=== PATIENT | male | born 1935 | race Caucasian/White ===

== ENCOUNTER 2019-02-15 16:35 | Inpatient (IN) | payer MEDICARE, OTHER ==
[~2019-02-15] VITALS: Ht 175 cm; Wt 90.1 kg
[~2019-02-15 16:35] MED LIST: ASPI81CH PO; CLOP75 PO; Flonase 0.05% N16 GM; Flovent 110 MCG12 GM INH; HYDCHL25 PO
--- NOTE | 2019-02-19 06:48 | NUR ---
Ambulatory in Day Surgery History, Chart, Medications and Allergies reviewed before start of procedure.Patient confirms NPO status and agrees with scheduled surgery. Lungs clear T/O to Auscultation. Patient reports completing Chlorhexadine shower X2 prior to admission to hospital.Surgical site prepped with 2% Chlorhexidine cloth wipe.
--- NOTE | 2019-02-19 10:41 | NUR ---
PT ARRIVED TO THE ROOM ALERT AND ORNIENTED. PT DENIES PAIN, PT HAD SPINAL ANESTHESIA HE STILL REPORTS LACK OF SENSATION TO BLE AND NO MOVEMENT. CAP REFILL WNL; UNABLE TO FEEL PULSE ON LLE, DOPPLER USED TO LOCATE. PT REPORTS THIS IS NORMAL AND HE RECENTLY HAD A BLOOD FLOW STUDY DONE, PT REPORTS THAT DR. BELL WAS UNABLE TO FEEL A PULSE IN HIS LLE AT A PRE-OP APPOINTMENT. WILL CONTINUE TO MONITOR.
--- NOTE | 2019-02-19 16:17 | NUR ---
BLADDER SCANNED PT. 35OML SEEN. STRAIGHT CATH PER ORDER, 400 OUT. WILL CONTINUE TO MONITOR PATIENT FOR STATED URGE TO VOID AND BLADDER SCAN AGAIN IN 6 HOURS PER ORDERS.
--- NOTE | 2019-02-19 16:39 | NUR ---
SHIFT SUMMARY POD 0 LEFT TOTAL HIP PATIENT IS ALERT AND ORIENTED WITH NO COMPLAINTS OF PAIN. PATIENT DEEP BREATHING AND USING INCENTIVE SPIROMETER. UP AND AMBULATING WITH THERAPY. TOLERATING WELL. NO URGE TO VOID, STRAIGHT CATH NEEDED AT 1600 WITH 400ML OUT. PT UP AND IN CHAIR. IN ROOM DURING DAY. WILL CONTINUE TO MONITOR AND ENCOURAGE AMBULATION TOLERATED.
[2019-02-20 04:04] LABS: BASOPHILS ABSOLUTE AUTO 0.07 K/mm3 (0.00-0.23); BASOPHILS PERCENT AUTO 1 % (0-2); EOSINOPHILS PERCENT AUTO 0 % (0-6); Hematocrit 38.4 % (37.0-53.0); Hemoglobin 12.4 g/dL (13.5-17.5); IMMATURE GRAN ABSOLUTE AUTO 0.04 K/mm3 (0.00-0.10); IMMATURE GRAN PERCENT AUTO 0 % (0-1); LYMPHOCYTES ABSOLUTE AUTO 1.14 K/mm3 (0.84-5.20); LYMPHOCYTES PERCENT AUTO 12 % (21-46); MONOCYTES ABSOLUTE AUTO 1.27 K/mm3 (0.16-1.47); MONOCYTES PERCENT AUTO 13 % (4-13); Mean Corpuscular HGB 32.2 pg (26.0-34.0); Mean Corpuscular HGB Conc 32.3 g/dL (31.5-36.5); Mean Corpuscular Volume 100 fL (80-100); Mean Platelet Volume 10.2 fL (9.1-12.4); NEUTROPHILS ABSOLUTE AUTO 6.94 K/mm3 (1.96-9.15); NEUTROPHILS PERCENT AUTO 73 % (41-73); Platelet Count 263 K/mm3 (150-400); RDW Coefficient Variation 13.4 % (11.7-14.2); RDW Standard Deviation 49.1 fL (35.1-46.3); Red Blood Cell Count 3.85 M/mm3 (4.30-5.90); White Blood Cell Count 9.46 K/mm3 (4.00-11.30)
[2019-02-20 04:22] LABS: Anion Gap 3 mmol/L (6-16); Blood Urea Nitrogen 16 mg/dL (8-24); Bun/Creatinine Ratio 17.6 (12.0-20.0); CO2, Blood 30 mmol/L (21-32); Calcium, Blood 8.4 mg/dL (8.5-10.1); Chloride, Blood 107 mmol/L (98-108); Creatinine, Blood 0.91 mg/dL (0.60-1.20); Glomerular Filtration Rate >60 (60-); Glucose, Blood 107 mg/dL (70-99); Potassium, Blood 4.4 mmol/L (3.5-5.5); Sodium, Blood 140 mmol/L (136-145)
--- NOTE | 2019-02-20 04:49 | NUR ---
SHIFT SUMMARY: PT POD #1 FOR LEFT TOTAL KNEE. AQUACEL DRESSING CDI WITH POLAR PACK IN PLACE. BLE PULSES THREADY, HOWEVER THIS IS NORMAL FOR PT. 1 ASSIST TO BATHROOM W/FWW. BOBBY ACTIVITY WELL AND VOIDING WELL. DENIES N/V. DRINKING ADEQUATE AMT OF FLUIDS. SALINE LOCKED. PAIN MANAGED WITH SCHED TORADOL AND TYLENOL.
[2019-02-20] MEDS ORDERED: Percocet 5-3251 EACH PO ×2 (10:54→10:55)
[2019-02-20] MEDS ORDERED: CELE100 PO (10:56)
--- NOTE | 2019-02-20 11:49 | NUR ---
SHIFT SUMMARY PT A&OX4, VSS, LEFT FLOOR VIA WC WITH RN, TO GO HOME WITH , WITH ALL PERSONAL POSSESSIONS INCLUDING DISCHARGE PACKET AND 2 SCRIPTS AND 2 AQUACEL. DISCHARGE INSTRUCTIONS PROVIDED. PT REP UNDERSTANDING THOSE INSTRUCTIONS INCLUDING CHANGE DRESSINGS ON SATURDAYS UNTIL FU WITH SG IN 2 WKS, OK TO SHOWER, NO TUB/JACUZZI, AMB W/FWW AT ALL TIMES, REST/ICE/ELEVATE, PT OUTPT. IV DC'D.
== END 2019-02-20 11:24 | disposition home or self-care (01) | DRG 470 ==
LOC: SURS 02-19 06:00 → PRE IP 02-19 07:30 → SURS 02-19 10:26
PROVIDERS: ADMIT Orthopaedic Surgery
PROC: 0SRB04A Replacement of Left Hip Joint with Ceramic on Polyethylene Synthetic Substitute, Uncemented, Open Approach (ICD-10-PCS; principal; 2019-02-19 07:30)
DX: M16.12 Unilateral primary osteoarthritis, left hip (principal); I10 Essential (primary) hypertension; J45.909 Unspecified asthma, uncomplicated
CPT/HCPCS: 36415; 72170; 80048; 85025; 86850; 86900; 86901; 88300; 97110; 97116; 97162; C1776; J0171; J0690; J0735; J1885; J2250; J2704; J2795; J3010; J7120

== ENCOUNTER 2020-07-30 08:51 | Day surgery (SDC) | payer MEDICARE, OTHER ==
[~2020-07-30] VITALS: Ht 175.3 cm; Wt 91.0 kg
[~2020-07-30 08:51] MED LIST changes: +CELE100 PO; +Percocet 5-3251 EACH PO
[2020-07-30] MEDS ORDERED: ASPIR 8181 M1 (09:00)
== END 2020-07-30 11:05 | disposition home or self-care (01) ==
LOC: ORSCSDS 08:51
PROVIDERS: Internal Medicine Gastroenterology
PROC: 0DBL8ZX Excision of Transverse Colon, Via Natural or Artificial Opening Endoscopic, Diagnostic (ICD-10-PCS; principal; 2020-07-30 10:15)
PROC: 0DBM8ZX Excision of Descending Colon, Via Natural or Artificial Opening Endoscopic, Diagnostic (ICD-10-PCS; principal; 2020-07-30 10:15)
PROC: 0DBN8ZX Excision of Sigmoid Colon, Via Natural or Artificial Opening Endoscopic, Diagnostic (ICD-10-PCS; principal; 2020-07-30 10:15)
DX: Z12.11 Encounter for screening for malignant neoplasm of colon (principal); D12.3 Benign neoplasm of transverse colon; D12.5 Benign neoplasm of sigmoid colon; K64.8 Other hemorrhoids; Z86.010 Personal history of colon polyps; Z79.01 Long term (current) use of anticoagulants; Z79.82 Long term (current) use of aspirin; Z79.899 Other long term (current) drug therapy; Z87.891 Personal history of nicotine dependence
CPT/HCPCS: 88305; J2704; J7120

== ENCOUNTER → 2023-03-07 | Outpatient (CLI) | payer MEDICARE, OTHER ==
[~2023-03-07] MED LIST changes: +ASPIR 8181 M1
[2023-03-07 15:18] LABS: BASOPHILS ABSOLUTE AUTO 0.09 K/mm3 (0.00-0.23); BASOPHILS PERCENT AUTO 1 % (0-2); EOSINOPHILS ABSOLUTE AUTO 0.33 K/mm3 (0.00-0.68); EOSINOPHILS PERCENT AUTO 4 % (0-6); Hematocrit 45.7 % (37.0-53.0); Hemoglobin 15.5 g/dL (13.5-17.5); IMMATURE GRAN ABSOLUTE AUTO 0.02 K/mm3 (0.00-0.10); IMMATURE GRAN PERCENT AUTO 0 % (0-1); LYMPHOCYTES ABSOLUTE AUTO 3.05 K/mm3 (0.84-5.20); LYMPHOCYTES PERCENT AUTO 34 % (21-46); MONOCYTES PERCENT AUTO 13 % (4-13); Mean Corpuscular HGB 35.2 pg (26.0-34.0); Mean Corpuscular HGB Conc 33.9 g/dL (31.5-36.5); Mean Corpuscular Volume 104 fL (80-100); Mean Platelet Volume 12.5 fL (9.1-12.4); NEUTROPHILS ABSOLUTE AUTO 4.34 K/mm3 (1.96-9.15); NEUTROPHILS PERCENT AUTO 48 % (41-73); Platelet Count 222 K/mm3 (150-400); RDW Coefficient Variation 14.2 % (11.7-14.2); RDW Standard Deviation 54.5 fL (35.1-46.3); White Blood Cell Count 9.03 K/mm3 (4.00-11.30)
[2023-03-07 16:10] LABS: Alanine Aminotransfer (ALT/SGP 27 U/L (12-78); Albumin, Blood 3.9 g/dL (3.4-5.0); Albumin/Globulin Ratio 1.3 (0.8-1.8); Alk Phos 91 U/L (50-136); Anion Gap 2 mmol/L (6-16); Aspartate Aminotrans (AST/SGOT 16 U/L (12-37); Bilirubin, Total 0.7 mg/dL (0.1-1.0); Blood Urea Nitrogen 17 mg/dL (8-24); Bun/Creatinine Ratio 16.5 (12.0-20.0); CO2, Blood 31 mmol/L (21-32); Calcium, Blood 9.9 mg/dL (8.5-10.1); Chloride, Blood 102 mmol/L (98-108); Creatinine, Blood 1.03 mg/dL (0.60-1.20); Globulin, Blood 3.1 g/dL (2.2-4.0); Glomerular Filtration Rate 71 (60-); Glucose, Blood 131 mg/dL (70-99); PSA, %Free 8.4 %; PSA, Free 0.793 ng/mL; Potassium, Blood 4.5 mmol/L (3.5-5.5); Sodium, Blood 135 mmol/L (136-145)
[2023-03-08 20:09] LABS: HEMOGLOBIN A1C 7.1 % (4.8-5.6)
== END | disposition home or self-care (01) ==
LOC: LAB SHORT 09:14 → LAB 09:14
PROVIDERS: Physician Assistant
DX: E11.9 Type 2 diabetes mellitus without complications (principal); I10 Essential (primary) hypertension; R97.20 Elevated prostate specific antigen [PSA]
CPT/HCPCS: 36415; 80053; 83036; 84153; 84154; 85025

== ENCOUNTER → 2024-03-08 | Outpatient (CLI) | payer MEDICARE, OTHER ==
[~2024-03-08] MED LIST changes: -ASPIR 8181 M1; +ASPIR 8181 M1 PO; +ELIQUIS5 M2 PO; +MOBIC15 MG PO
[2024-03-08 14:00] LABS: BASOPHILS PERCENT AUTO 1 % (0-2); EOSINOPHILS PERCENT AUTO 3 % (0-6); Hematocrit 41.7 % (37.0-53.0); Hemoglobin 14.2 g/dL (13.5-17.5); IMMATURE GRAN ABSOLUTE AUTO 0.06 K/mm3 (0.00-0.10); IMMATURE GRAN PERCENT AUTO 1 % (0-1); LYMPHOCYTES ABSOLUTE AUTO 3.29 K/mm3 (0.84-5.20); LYMPHOCYTES PERCENT AUTO 29 % (21-46); MONOCYTES ABSOLUTE AUTO 1.56 K/mm3 (0.16-1.47); MONOCYTES PERCENT AUTO 14 % (4-13); Mean Corpuscular HGB 35.2 pg (26.0-34.0); Mean Corpuscular HGB Conc 34.1 g/dL (31.5-36.5); Mean Corpuscular Volume 104 fL (80-100); Mean Platelet Volume 9.5 fL (9.1-12.4); NEUTROPHILS ABSOLUTE AUTO 6.05 K/mm3 (1.96-9.15); NEUTROPHILS PERCENT AUTO 53 % (41-73); Platelet Count 376 K/mm3 (150-400); RDW Coefficient Variation 14.6 % (11.7-14.2); RDW Standard Deviation 56.7 fL (35.1-46.3); Red Blood Cell Count 4.03 M/mm3 (4.30-5.90); White Blood Cell Count 11.36 K/mm3 (4.00-11.30)
[2024-03-08 14:09] LABS: Albumin, Blood 3.5 g/dL (3.4-5.0); Bilirubin, Total 0.7 mg/dL (0.1-1.0); Bun/Creatinine Ratio 12.8 (12.0-20.0); Calcium, Blood 10.4 mg/dL (8.5-10.1); Creatinine, Blood 1.09 mg/dL (0.60-1.20); Globulin, Blood 3.5 g/dL (2.2-4.0); Potassium, Blood 4.1 mmol/L (3.5-5.5)
== END | disposition home or self-care (01) ==
LOC: LAB SHORT 13:55 → LAB 13:55
PROVIDERS: Family Medicine
DX: R41.0 Disorientation, unspecified (principal)
CPT/HCPCS: 80053; 85025

== ENCOUNTER → 2024-03-08 | Outpatient (CLI) | payer MEDICARE, OTHER | END | disposition home or self-care (01) | LOC: LAB 16:03 → LAB SHORT 16:03 | DX: N39.0 Urinary tract infection, site not specified (principal) | CPT/HCPCS: 87086 ==

== ENCOUNTER → 2024-03-15 | Outpatient (CLI) | payer MEDICARE, OTHER ==
[2024-03-15 12:28] LABS: BASOPHILS ABSOLUTE AUTO 0.07 K/mm3 (0.00-0.23); BASOPHILS PERCENT AUTO 1 % (0-2); EOSINOPHILS PERCENT AUTO 0 % (0-6); Hematocrit 40.6 % (37.0-53.0); Hemoglobin 13.5 g/dL (13.5-17.5); IMMATURE GRAN ABSOLUTE AUTO 0.04 K/mm3 (0.00-0.10); IMMATURE GRAN PERCENT AUTO 1 % (0-1); LYMPHOCYTES ABSOLUTE AUTO 2.12 K/mm3 (0.84-5.20); LYMPHOCYTES PERCENT AUTO 24 % (21-46); MONOCYTES ABSOLUTE AUTO 0.99 K/mm3 (0.16-1.47); MONOCYTES PERCENT AUTO 11 % (4-13); Mean Corpuscular HGB 35.1 pg (26.0-34.0); Mean Corpuscular HGB Conc 33.3 g/dL (31.5-36.5); Mean Corpuscular Volume 106 fL (80-100); Mean Platelet Volume 9.4 fL (9.1-12.4); NEUTROPHILS ABSOLUTE AUTO 5.57 K/mm3 (1.96-9.15); NEUTROPHILS PERCENT AUTO 63 % (41-73); Platelet Count 413 K/mm3 (150-400); RDW Coefficient Variation 14.5 % (11.7-14.2); RDW Standard Deviation 55.8 fL (35.1-46.3); Red Blood Cell Count 3.85 M/mm3 (4.30-5.90); White Blood Cell Count 8.79 K/mm3 (4.00-11.30)
[2024-03-15 12:39] LABS: Albumin, Blood 3.5 g/dL (3.4-5.0); Albumin/Globulin Ratio 1.1 (0.8-1.8); Bilirubin, Total 0.5 mg/dL (0.1-1.0); Bun/Creatinine Ratio 14.5 (12.0-20.0); Calcium, Blood 9.9 mg/dL (8.5-10.1); Creatinine, Blood 1.1 mg/dL (0.60-1.20); Globulin, Blood 3.1 g/dL (2.2-4.0); Potassium, Blood 4.2 mmol/L (3.5-5.5); Total Protein, Blood 6.6 g/dL (6.4-8.2)
== END | disposition home or self-care (01) ==
LOC: LAB SHORT 12:24 → LAB 12:24
PROVIDERS: Family Medicine
DX: R41.0 Disorientation, unspecified (principal)
CPT/HCPCS: 80053; 85025

== ENCOUNTER 2024-06-27 14:46 | Inpatient (IN) | payer MEDICARE, OTHER ==
[~2024-06-27] VITALS: Ht 180.3 cm; Wt 88.4 kg
[2024-06-27 15:09] LABS: BASOPHILS ABSOLUTE AUTO 0.08 K/mm3 (0.00-0.23); BASOPHILS PERCENT AUTO 1 % (0-2); EOSINOPHILS ABSOLUTE AUTO 0.09 K/mm3 (0.00-0.68); EOSINOPHILS PERCENT AUTO 1 % (0-6); Hematocrit 36.4 % (37.0-53.0); Hemoglobin 12.3 g/dL (13.5-17.5); IMMATURE GRAN ABSOLUTE AUTO 0.06 K/mm3 (0.00-0.10); IMMATURE GRAN PERCENT AUTO 1 % (0-1); LYMPHOCYTES ABSOLUTE AUTO 2.85 K/mm3 (0.84-5.20); LYMPHOCYTES PERCENT AUTO 22 % (21-46); MONOCYTES ABSOLUTE AUTO 1.96 K/mm3 (0.16-1.47); MONOCYTES PERCENT AUTO 15 % (4-13); Mean Corpuscular HGB 34.5 pg (26.0-34.0); Mean Corpuscular HGB Conc 33.8 g/dL (31.5-36.5); Mean Corpuscular Volume 102 fL (80-100); Mean Platelet Volume 10.8 fL (9.1-12.4); NEUTROPHILS ABSOLUTE AUTO 7.73 K/mm3 (1.96-9.15); NEUTROPHILS PERCENT AUTO 61 % (41-73); Platelet Count 289 K/mm3 (150-400); RDW Coefficient Variation 14.7 % (11.7-14.2); RDW Standard Deviation 55.3 fL (35.1-46.3); Red Blood Cell Count 3.57 M/mm3 (4.30-5.90); White Blood Cell Count 12.77 K/mm3 (4.00-11.30)
[2024-06-27] MEDS ORDERED: TAMS.4ER PO (15:19)
[2024-06-27 15:29] LABS: Albumin, Blood 3.4 g/dL (3.4-5.0); Albumin/Globulin Ratio 1.2 (0.8-1.8); Bilirubin, Total 0.7 mg/dL (0.1-1.0); Bun/Creatinine Ratio 15.5 (12.0-20.0); Calcium, Blood 9.1 mg/dL (8.5-10.1); Creatinine, Blood 0.77 mg/dL (0.60-1.20); Globulin, Blood 2.9 g/dL (2.2-4.0); Potassium, Blood 4.4 mmol/L (3.5-5.5); Total Protein, Blood 6.3 g/dL (6.4-8.2)
[2024-06-27 15:31] LABS: International Normalized Ratio 1.14; Prothrombin Time Results 12.1 Sec (9.7-11.5)
[2024-06-27 16:17] LABS: Source, Urine Clean Catch
[2024-06-27 16:29] LABS: Appearance, Urine Hazy (Clear); Bilirubin, Urine Neg (Neg); Blood, Urine 5+ (Neg); Color, Urine Yellow (P-Yellow); Glucose Qualitative, Urine Neg (Neg); Ketones, Urine 1+ (Neg); Leukocyte Esterase, Urine 1+ (Neg); Nitrite, Urine Neg (Neg); Protein, Urine 2+ (Neg); Urobilinogen, Urine NORM (Normal)
[2024-06-27 16:47] LABS: Bacteria Few /hpf; Red Blood Cells, Urine 50-100 /hpf (0-2); Squamous Epithelial Cells Rare /hpf (Few); White Blood Cells, Urine 0-2 /hpf (0-5)
[2024-06-27] MEDS ORDERED: Albuterol 2.5 MG/3 ML VIAL INH PRN (18:15)
[2024-06-27] MEDS ORDERED: FLU VACC TS2024-25(6MOS UP)/PF 45 MCG/0.5 ML SYRINGE IM ONE (18:15)
[2024-06-27] MEDS ORDERED: Ondansetron HCl 2 MG / ML 2ML Vial IV PRN (18:15)
[2024-06-27 19:52] LABS: Adenovirus Not Detected (NOT DETECT); Bordetella pertussis Not Detected (NOT DETECT); Chlamydophila pneumoniae Not Detected (NOT DETECT); Coronavirus 229E Not Detected (NOT DETECT); Coronavirus HKU1 Not Detected (NOT DETECT); Coronavirus NL63 Not Detected (NOT DETECT); Coronavirus OC43 Not Detected (NOT DETECT); Human Metapneumovirus Not Detected (NOT DETECT); Human Rhinovirus/Enterovirus Not Detected (NOT DETECT); Influenza A/2009-H1 Detected (NOT DETECT); Influenza A/H1 Not Detected (NOT DETECT); Influenza A/H3 Not Detected (NOT DETECT); Influenza B Not Detected (NOT DETECT); Mycoplasma pneumoniae Not Detected (NOT DETECT); Parainfluenza Virus 1 Not Detected (NOT DETECT); Parainfluenza Virus 2 Not Detected (NOT DETECT); Parainfluenza Virus 3 Not Detected (NOT DETECT); Parainfluenza Virus 4 Not Detected (NOT DETECT); Respiratory Syncytial Virus Not Detected (NOT DETECT); SARS-Cov-2 (COVID-19), BioFire Not Detected (NOT DETECT)
[2024-06-27] MEDS ORDERED: Apixaban 5 MG Tab PO SCH (21:00)
[2024-06-27] MEDS ORDERED: Oseltamivir Phosphate 75 MG Cap PO SCH (21:39)
[2024-06-27] MEDS ORDERED: Metoprolol Tartrate 1 MG/ML 5 ML VIAL IV ONE (22:45)
[2024-06-28 00:27] VITALS: BP 169/78
[2024-06-28 04:36] VITALS: BP 113/67
--- NOTE | 2024-06-28 04:41 | NUR ---
SHIFT SUMMARY PT ARRIVED FROM ER AT 0015. ORIENTED TO ROOM. A&Ox2 BUT PLEASANTLY CONFUSED. HX OF DEMENTIA. PT ON TELE AND RUNNING SR @ 95. NO C/O PAIN BUT PT DID HAVE EPISODE OF NAUSEA. MEDICATED PER EMAR WITH GOOD EFFECT. IMPULSIVE SO BED ALARM ON. PT UP TO BSC AND DIFFICULT TO DIRECT. SCD's IN PLACE. BED IN LOWEST POSITION AND CALL LIGHT IN REACH.
[2024-06-28 06:38] LABS: Hematocrit 36.8 % (37.0-53.0); Hemoglobin 11.8 g/dL (13.5-17.5); Mean Corpuscular HGB 33.9 pg (26.0-34.0); Mean Corpuscular HGB Conc 32.1 g/dL (31.5-36.5); Mean Corpuscular Volume 106 fL (80-100); Mean Platelet Volume 9.9 fL (9.1-12.4); Platelet Count 293 K/mm3 (150-400); RDW Coefficient Variation 14.9 % (11.7-14.2); RDW Standard Deviation 58.6 fL (35.1-46.3); Red Blood Cell Count 3.48 M/mm3 (4.30-5.90); White Blood Cell Count 11.72 K/mm3 (4.00-11.30)
[2024-06-28 06:58] LABS: Bun/Creatinine Ratio 16.6 (12.0-20.0); Creatinine, Blood 0.84 mg/dL (0.60-1.20); Potassium, Blood 4.2 mmol/L (3.5-5.5)
[2024-06-28 07:30] VITALS: BP 130/67
[2024-06-28] MEDS ORDERED: Tamsulosin HCl 0.4 MG Cap PO SCH (09:00)
[2024-06-28] MEDS ORDERED: Clopidogrel Bisulfate 75 MG Tab PO SCH (09:00)
[2024-06-28] MEDS ORDERED: THERA-D2000 UNIT PO (11:06)
[2024-06-28] MEDS ORDERED: Niacinamide500 MG PO (11:07)
[2024-06-28] MEDS ORDERED: CRANBERRY450 M1 PO (11:07)
[2024-06-28] MEDS ORDERED: COQ-10100 MG PO (11:10)
[2024-06-28] MEDS ORDERED: [UNRECOGNIZED DRUG - OTHER] PO (11:11)
--- NOTE | 2024-06-28 11:11 | NUR ---
PATIENT IN AFIB HR 117, ASYMPTOMATIC AT THIS TIME. DR RYDER NOTIFIED. NO NEW ORDERS AT THIS TIME.
--- NOTE | 2024-06-28 16:33 | NUR ---
Pt was asleep. Pt's spouse gave a warm welcome to the room and expressed interest in a clinical nursing instructor visit. Pt is dealing with the flu. Assessed pt's spiritual support system. Pt is connected to [employer] and the [employer]ian[employer] is aware of his condition and he receives frequent visitors. Life review conducted. 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 Pt requested bible which was promptly delivered. Prayer offered. Pt's spouse was grateful for prayer and visit - "I hope we get to see you again"
--- NOTE | 2024-06-28 18:28 | NUR ---
SHIFT SUMMARY PATIENT ORIENTED TO SELF AND SOMETIMES REDIRECTABLE. HE IS SUPPOSED TO BE 1 PERSON ASSIST TO CHAIR AND COMMODE BUT HAS BEEN INCREASING IN STRENGTH TODAY AND THIS LAST TIME BED ALARM WENT OFF, PATIENT GOT UP AND WALKED TO THE BATHROOM PAST THE COMMODE WITH SOME FURNITURE LEANING BUT OVERALL FAIRLY STEADY ON HIS FEET. HE HAS BEEN UP IN CHAIR FOR MEALS WITH NAPS IN BED BETWEEN. CURRENTLY AT BEDSIDE. BED IN LOW POSITION, BED ALARM ON. PATIENT DOES NOT USE CALL LIGTH.
[2024-06-28 19:13] VITALS: BP 144/82
[2024-06-28] MEDS ORDERED: CefTRIAXone Sodium 1,000 MG in NS 100 ML IV SCH (21:00)
[2024-06-28] MEDS ORDERED: Lactobacil 2-S.Thermo-Bifido 1 1 Cap PO SCH (21:00)
[2024-06-28] MEDS ORDERED: NS 250 ML IV PRN ×2 (21:55→22:05)
[2024-06-29 03:06] VITALS: BP 138/80
--- NOTE | 2024-06-29 05:50 | NUR ---
SHIFT SUMMARY NOC PT A/O TO SELF AND FAMILY. PLEASANTLY CONFUSED BUT COOPERATIVE WITH CARE. VSS. ON DROPLET ISOLATION FOR INFLUENZA A. PT CONVERTED BACK TO SINUS RHYTHM IN 70'S FROM AFIB @ 1858. PT RECEIVED FIRST DOSE IV ABX. PT STILL IMPULSIVE AT TIMES AND ATTEMPTED OOB ALONE A FEW TIMES, BUT BED ALARM ON FOR SAFETY. PT HAS BEEN CONT/INC OF URINE X 3. PT WAS BEDSIDE DURING CHANGE OF SHIFT AND STATED THAT THEIR SON IN [place] IS LOOKING FOR L[place]ISA UP THERE FOR THE BOTH OF THEM, SO THAT THEY WILL BE CLOSER TO HIM. PT CURRENTLY RESTING WITH BED IN LOWEST POSITION, AND CALL LIGHT WITHIN REACH.
[2024-06-29 06:20] LABS: BASOPHILS ABSOLUTE AUTO 0.06 K/mm3 (0.00-0.23); BASOPHILS PERCENT AUTO 1 % (0-2); EOSINOPHILS ABSOLUTE AUTO 0.14 K/mm3 (0.00-0.68); EOSINOPHILS PERCENT AUTO 2 % (0-6); Hematocrit 37.9 % (37.0-53.0); Hemoglobin 12.7 g/dL (13.5-17.5); IMMATURE GRAN ABSOLUTE AUTO 0.02 K/mm3 (0.00-0.10); IMMATURE GRAN PERCENT AUTO 0 % (0-1); LYMPHOCYTES ABSOLUTE AUTO 2.65 K/mm3 (0.84-5.20); LYMPHOCYTES PERCENT AUTO 31 % (21-46); MONOCYTES ABSOLUTE AUTO 1.57 K/mm3 (0.16-1.47); MONOCYTES PERCENT AUTO 18 % (4-13); Mean Corpuscular HGB 34.7 pg (26.0-34.0); Mean Corpuscular HGB Conc 33.5 g/dL (31.5-36.5); Mean Corpuscular Volume 104 fL (80-100); Mean Platelet Volume 10.2 fL (9.1-12.4); NEUTROPHILS PERCENT AUTO 48 % (41-73); Platelet Count 269 K/mm3 (150-400); RDW Coefficient Variation 14.9 % (11.7-14.2); RDW Standard Deviation 57.4 fL (35.1-46.3); Red Blood Cell Count 3.66 M/mm3 (4.30-5.90); White Blood Cell Count 8.54 K/mm3 (4.00-11.30)
[2024-06-29 07:14] VITALS: BP 135/57
[2024-06-29 15:35] VITALS: BP 147/75
--- NOTE | 2024-06-29 18:18 | NUR ---
PT ALERT AND ORIENTED TO SELF AND PLACE ONLY, PLEASANTLY CONFUSED AND COOPERATIVE WITH CARE. AT BEDSIDE FOR MOST OF THE SHIFT. VSS, RA, UPPER AIRWAY WHEEZES, SR 70 ON TELE. 1 PERSON ASSIST WITH FWW TO BATHROOM. NO COMPLAINTS OF PAIN. CONT/INC. ATTENDS IN PLACE. CALL LIGHT IN REACH, BED IN LOWEST POSITION, BED ALARM ON FOR SAFETY.
[2024-06-29 19:26] VITALS: BP 149/64
--- NOTE | 2024-06-29 22:27 | NUR ---
Pt awake,, trying to make a phone call stating that his is at home trying to take care of the house. I explained to him that it's late and that I'm sure she's in bed sleeping now. Pt with HOB up and glasses on just sitting in the dark, have tried to put him down and prepared for bed x2, not effective.
[2024-06-30 02:48] VITALS: BP 146/73
--- NOTE | 2024-06-30 05:04 | NUR ---
Pt A&O x1, only oriented to self and family. Pt VS WNL, up to BR several times in night with supervision, gait steady. tele NSR in 's. PO intake adequate. afebrile, l/s clear, nebs administered by RT. Pt with potential d/c today 06/30. Bed alarm in play at night, Pt does call at times.
[2024-06-30 06:34] LABS: BASOPHILS ABSOLUTE AUTO 0.07 K/mm3 (0.00-0.23); BASOPHILS PERCENT AUTO 1 % (0-2); EOSINOPHILS ABSOLUTE AUTO 0.11 K/mm3 (0.00-0.68); EOSINOPHILS PERCENT AUTO 1 % (0-6); Hematocrit 37.9 % (37.0-53.0); Hemoglobin 12.3 g/dL (13.5-17.5); IMMATURE GRAN ABSOLUTE AUTO 0.02 K/mm3 (0.00-0.10); IMMATURE GRAN PERCENT AUTO 0 % (0-1); LYMPHOCYTES ABSOLUTE AUTO 4.21 K/mm3 (0.84-5.20); LYMPHOCYTES PERCENT AUTO 49 % (21-46); MONOCYTES ABSOLUTE AUTO 1.18 K/mm3 (0.16-1.47); MONOCYTES PERCENT AUTO 14 % (4-13); Mean Corpuscular HGB 33.6 pg (26.0-34.0); Mean Corpuscular HGB Conc 32.5 g/dL (31.5-36.5); Mean Corpuscular Volume 104 fL (80-100); Mean Platelet Volume 9.9 fL (9.1-12.4); NEUTROPHILS ABSOLUTE AUTO 3.07 K/mm3 (1.96-9.15); NEUTROPHILS PERCENT AUTO 36 % (41-73); Platelet Count 334 K/mm3 (150-400); RDW Coefficient Variation 14.9 % (11.7-14.2); RDW Standard Deviation 56.7 fL (35.1-46.3); Red Blood Cell Count 3.66 M/mm3 (4.30-5.90); White Blood Cell Count 8.66 K/mm3 (4.00-11.30)
[2024-06-30 07:20] LABS: Albumin, Blood 3.1 g/dL (3.4-5.0); Anion Gap 8 mmol/L (3-11); Blood Urea Nitrogen 20 mg/dL (8-24); Bun/Creatinine Ratio 20.8 (12.0-20.0); CO2, Blood 29 mmol/L (21-32); Calcium, Blood 8.8 mg/dL (8.5-10.1); Chloride, Blood 107 mmol/L (98-108); Creatinine, Blood 0.96 mg/dL (0.60-1.20); Glomerular Filtration Rate 77 (60-); Glucose, Blood 112 mg/dL (70-99); Phosphorus, Blood 3.4 mg/dL (2.5-4.9); Potassium, Blood 4.2 mmol/L (3.5-5.5); Sodium, Blood 140 mmol/L (136-145)
[2024-06-30 07:57] VITALS: BP 149/80
[2024-06-30] MEDS ORDERED: AMOCLA875 PO (16:05)
[2024-06-30] MEDS ORDERED: TAMIFLU7511 PO (16:07)
[2024-06-30] MEDS ORDERED: VISBIOME 112.51 EACH PO (16:07)
[2024-06-30] MEDS ORDERED: Oseltamivir Phosphate 75 MG Cap PO ONE (16:25)
[2024-06-30] MEDS ORDERED: Amoxicillin/Clavulanate K 875 MG Tab PO ONE (16:25)
--- NOTE | 2024-06-30 18:44 | NUR ---
DISCHARGE PT DISCHARGED HOME VIA PRIVATE VEHICLE WITH SPOUSE. CLINICAL OUTCOMES MANAGER WHEELED PT TO CARE IN WHEEL CHAIR. ALL BELONGINGS SENT WITH PT, EDUCATION PROVIDED.
== END 2024-06-30 17:48 | disposition home health service (06) | DRG 690 ==
LOC: ER 14:46 → MEDS 18:11 → ERHOLD 18:11 → MEDS 06-28 00:05
PROVIDERS: Emergency Medicine; Family Medicine; Nurse Practitioner Acute Care; ADMIT Internal Medicine
DX: N39.0 Urinary tract infection, site not specified (principal); J11.1 Influenza due to unidentified influenza virus with other respiratory manifestations; Z66 Do not resuscitate; F03.90 Unspecified dementia, unspecified severity, without behavioral disturbance, psychotic disturbance, mood disturbance, and anxiety; E11.9 Type 2 diabetes mellitus without complications; E78.5 Hyperlipidemia, unspecified; I25.10 Atherosclerotic heart disease of native coronary artery without angina pectoris; N40.0 Benign prostatic hyperplasia without lower urinary tract symptoms; R31.29 Other microscopic hematuria; I10 Essential (primary) hypertension; J45.909 Unspecified asthma, uncomplicated; Z96.643 Presence of artificial hip joint, bilateral; Z86.711 Personal history of pulmonary embolism; Z79.01 Long term (current) use of anticoagulants; Z79.02 Long term (current) use of antithrombotics/antiplatelets; Z85.828 Personal history of other malignant neoplasm of skin; Z86.73 Personal history of transient ischemic attack (TIA), and cerebral infarction without residual deficits; Z90.49 Acquired absence of other specified parts of digestive tract; Z98.890 Other specified postprocedural states; Z87.891 Personal history of nicotine dependence
CPT/HCPCS: 0202U; 36415; 51798; 70450; 70496; 70498; 71045; 80048; 80053; 80069; 81001; 82550; 83880; 84443; 84484; 85025; 85027; 85610; 85730; 87086; 93005; 93010; 93306; 94640; 94664; 94760; 96365; 96374-59; 96375; 97110; 97116; 97162; 97166; 97535; 99285-25; A9270; G0378; J0696; J2405; J7050; Q9967

== ENCOUNTER → 2024-09-09 | Outpatient (CLI) | payer MEDICARE, OTHER ==
[~2024-09-09] MED LIST changes: +AMOCLA875 PO; +COQ-10100 MG PO; +CRANBERRY450 M1 PO; +Niacinamide500 MG PO; +TAMIFLU7511 PO; +TAMS.4ER PO; +THERA-D2000 UNIT PO; +VISBIOME 112.51 EACH PO; +[UNRECOGNIZED DRUG - OTHER] PO
[2024-09-09 19:19] LABS: Microalb/Creat Ratio UR, Rand 6.248 mg/g (0.000-30.000); Microalbumin, Random Urine 9.81 mg/L (0.000-20.000)
== END ==
LOC: LAB 10:13 → LAB SHORT 10:13
PROVIDERS: Family Medicine
DX: E11.9 Type 2 diabetes mellitus without complications (principal)
CPT/HCPCS: 82043; 82570

== ENCOUNTER → 2024-09-10 | Outpatient (CLI) | payer MEDICARE, OTHER | LOC: LAB SHORT 14:12 → LAB 14:12 | DX: R21 Rash and other nonspecific skin eruption (principal) | CPT/HCPCS: 88312 ==